=== PATIENT | female | born 1940 | race Caucasian/White ===

== ENCOUNTER 2022-01-11 14:18 | Inpatient (IN) ==
[2022-01-11] MEDS ORDERED: Ipratropium/Albuterol Neb 3 ML IH PRN (15:59)
[2022-01-11] MEDS ORDERED: Sennosides/Docusate Sodium TABLET PO PRN (15:59)
[2022-01-11] MEDS ORDERED: Ondansetron ODT 4 MG TAB.RAPDIS SL PRN (15:59)
[2022-01-11] MEDS ORDERED: Acetaminophen 325 MG TABLET PO PRN (15:59)
[2022-01-11] MEDS ORDERED: Albuterol 2.5 MG/3 ML NEBULIZER IH PRN (16:02)
[2022-01-11] MEDS ORDERED: Nitroglycerin 0.4 MG TAB.SUBL SL PRN (16:02)
[2022-01-11] MEDS ORDERED: hydrOXYzine pamoate 25 MG CAPSULE PO PRN (16:02)
[2022-01-11] MEDS: *HR* LORazepam Oral Conc 2 MG/ML PO PRN ×2 (16:14→21:01)
[2022-01-11] MEDS: Morphine Sulfate Oral CONC 10 MG/0.5 ML ORAL.SYG PO PRN (16:15)
[2022-01-11] MEDS ORDERED: Haloperidol Oral Conc 10 MG/5 ML UDC PO PRN (17:17)
[2022-01-11] MEDS ORDERED: 0.9 % Sodium Chloride 1,000 ML IVC SCH (18:00)
[2022-01-11 18:49] LABS: Hematocrit 34.5 % (35.3-44.9); Hemoglobin 11.7 g/dL (11.5-15.4); Mean Corpuscular HGB Conc 33.9 g/dL (31.6-35.5); Mean Corpuscular Hemoglobin 30.6 pg (28.0-33.3); Mean Corpuscular Volume 90.3 fL (83.0-100.0); Mean Platelet Volume 9.4 fL (9.4-12.4); Red Blood Count 3.82 M/mcL (3.82-4.97); Red Cell Distribution Width 13.1 % (11.5-14.5)
[2022-01-11 19:00] LABS: Platelet Count 86 K/mcL (140-400)
[2022-01-11 19:02] LABS: BUN/Creatinine Ratio 20 (6-26); Blood Urea Nitrogen 14 mg/dL (8-23); Calcium 9.4 mg/dL (8.6-10.3); Carbon Dioxide 30 mEq/L (23-29); Chloride 87 mEq/L (98-107); Glucose 344 mg/dL (70-105); Osmolality,Calculated 282 (280-300); Potassium 4.2 mEq/L (3.5-5.1); Sodium 129 mEq/L (136-145); eGFR For African Americans > 60 (> 60); eGFR For Non-African Americans > 60 (> 60)
[2022-01-11 19:12] LABS: INR 1.4; Prothrombin Time 15.3 Seconds (9.4-12.1)
[2022-01-11] MEDS ORDERED: Warfarin perPT PO PRN (19:35)
[2022-01-11] MEDS: *HR* Metformin 500 MG TABLET PO SCH (19:47)
[2022-01-11] MEDS ORDERED: *HR* Warfarin 5 MG TABLET PO ONE (20:15)
[2022-01-11] MEDS: Primidone 50 MG TABLET PO SCH (21:00)
[2022-01-11] MEDS: Famotidine 20 MG TABLET PO SCH (21:01)
[2022-01-11] MEDS: (Colestipol Hcl [Colestid] 1 GM Tablet) PO SCH (21:05)
[2022-01-11] MEDS: *HR* HYDROcodone/Acet 7.5/325 mg TABLET PO PRN (22:33)
[2022-01-12 05:03] LABS: Bilirubin,Urine Negative (Negative); Blood,Urine Small (Negative); Clarity,Urine Cloudy (Clear); Color,Urine Yellow (Yellow); Glucose,Urine (UA) 100 mg/dL (Normal); Ketones,Urine Negative (Negative); Leukocyte Esterase,Urine Large (Negative); Nitrite,Urine Positive (Negative); PH,Urine 5.5 pH Units (5.0-8.0); Protein,Urine Trace mg/dL (Neg-Trace); Urobilinogen,Urine Normal (Normal)
[2022-01-12] MEDS: *HR* HYDROcodone/Acet 7.5/325 mg TABLET PO PRN ×3 (05:14→17:33)
[2022-01-12 05:19] LABS: Bacteria,Urine Many per hpf (None-Few); RBC,Urine 0-3 per hpf (0-3); Squamous Epithelial Cell,Urine Few per hpf (None-Few); WBC,Urine TNTC per hpf (0-3)
[2022-01-12 08:10] LABS: INR 1.4; Prothrombin Time 15.3 Seconds (9.4-12.1)
[2022-01-12] MEDS ORDERED: Furosemide 40 MG TABLET PO SCH (09:00)
[2022-01-12] MEDS ORDERED: *HR* Warfarin 5 MG TABLET PO SCH ×2 (09:00)
[2022-01-12] MEDS: Gabapentin 100 MG CAPSULE PO SCH (09:32)
[2022-01-12] MEDS: Primidone 50 MG TABLET PO SCH ×2 (09:33→21:53)
[2022-01-12] MEDS: Isosorbide MONOnitrate (24 HR) 30 MG TAB.ER.24H PO SCH (09:33)
[2022-01-12] MEDS: *HR* Digoxin 0.125 MG TABLET PO SCH (09:33)
[2022-01-12] MEDS: Metoprolol XL (24 HR) Succ 50 MG TAB.ER.24H PO SCH (09:33)
[2022-01-12] MEDS: (Colestipol Hcl [Colestid] 1 GM Tablet) PO SCH ×2 (09:34→21:54)
[2022-01-12] MEDS: Cefdinir 300 MG CAPSULE PO SCH ×2 (11:13→21:53)
[2022-01-12] MEDS: *HR* Metformin 500 MG TABLET PO SCH (17:30)
[2022-01-12] MEDS ORDERED: *HR* Warfarin 5 MG TABLET PO ONE (18:00)
[2022-01-12] MEDS: Famotidine 20 MG TABLET PO SCH (21:53)
[2022-01-13] MEDS: *HR* HYDROcodone/Acet 7.5/325 mg TABLET PO PRN ×4 (05:38→22:12)
[2022-01-13 07:49] LABS: Basophils % 0.7 %; Eosinophils # 0.1 K/mcL (0.0-0.6); Eosinophils % 2.3 %; Hematocrit 36.9 % (35.3-44.9); Immature Granulocytes % 0.7 % (0-4); Lymphocytes # 1.3 K/mcL (0.6-4.6); Lymphocytes % 23.3 %; Mean Corpuscular HGB Conc 32.5 g/dL (31.6-35.5); Mean Corpuscular Volume 92.3 fL (83.0-100.0); Monocytes # 0.7 K/mcL (0.0-1.3); Monocytes % 12.8 %; Neutrophils # 3.4 K/mcL (1.6-8.9); Platelet Count 109 K/mcL (140-400); Segmented Neutrophils % 60.2 %; White Blood Count 5.6 K/mcL (4.3-11.1)
[2022-01-13 07:53] LABS: INR 1.6; Prothrombin Time 18.2 Seconds (9.4-12.1)
[2022-01-13 08:07] LABS: BUN/Creatinine Ratio 27 (6-26); Blood Urea Nitrogen 21 mg/dL (8-23); Calcium 9.5 mg/dL (8.6-10.3); Carbon Dioxide 34 mEq/L (23-29); Chloride 92 mEq/L (98-107); Glucose 291 mg/dL (70-105); Osmolality,Calculated 292 (280-300); Potassium 4.7 mEq/L (3.5-5.1); Sodium 134 mEq/L (136-145); eGFR For African Americans > 60 (> 60); eGFR For Non-African Americans > 60 (> 60)
[2022-01-13 08:15] LABS: Large Platelets Present (Not Present); Platelet Estimate Decreased (Normal)
[2022-01-13] MEDS: Isosorbide MONOnitrate (24 HR) 30 MG TAB.ER.24H PO SCH (09:02)
[2022-01-13] MEDS: Primidone 50 MG TABLET PO SCH ×2 (09:02→22:11)
[2022-01-13] MEDS: *HR* Digoxin 0.125 MG TABLET PO SCH (09:02)
[2022-01-13] MEDS: Gabapentin 100 MG CAPSULE PO SCH (09:02)
[2022-01-13] MEDS: Metoprolol XL (24 HR) Succ 50 MG TAB.ER.24H PO SCH (09:02)
[2022-01-13] MEDS: Cefdinir 300 MG CAPSULE PO SCH ×2 (09:03→22:11)
[2022-01-13] MEDS: (Colestipol Hcl [Colestid] 1 GM Tablet) PO SCH ×2 (09:03→22:13)
[2022-01-13] MEDS ORDERED: *HR* Dextrose 50 % in Water (Syg) 50 ML SYRINGE IVP PRN (11:48)
[2022-01-13] MEDS ORDERED: Dextrose Gel 15 GM/37.5 ML TUBE PO PRN ×2 (11:48)
[2022-01-13] MEDS ORDERED: D5% in Water 1,000 ML IVC PRN (11:48)
[2022-01-13] MEDS: Insulin LISPRO 300 UNITS/3 ML VIAL SUBQ SCH ×2 (12:08→17:25)
[2022-01-13] MEDS: Morphine Sulfate Oral CONC 10 MG/0.5 ML ORAL.SYG PO PRN (14:47)
[2022-01-13] MEDS: *HR* Metformin 500 MG TABLET PO SCH (17:24)
[2022-01-13] MEDS ORDERED: *HR* Warfarin 5 MG TABLET PO ONE (18:00)
[2022-01-13] MEDS: Famotidine 20 MG TABLET PO SCH (22:12)
[2022-01-14 05:12] LABS: INR 1.9; Prothrombin Time 20.8 Seconds (9.4-12.1)
[2022-01-14] MEDS: Insulin LISPRO 300 UNITS/3 ML VIAL SUBQ SCH ×3 (09:09→18:03)
[2022-01-14] MEDS: Primidone 50 MG TABLET PO SCH ×2 (09:10→21:57)
[2022-01-14] MEDS: Isosorbide MONOnitrate (24 HR) 30 MG TAB.ER.24H PO SCH (09:10)
[2022-01-14] MEDS: Gabapentin 100 MG CAPSULE PO SCH (09:10)
[2022-01-14] MEDS: *HR* Digoxin 0.125 MG TABLET PO SCH (09:10)
[2022-01-14] MEDS: Metoprolol XL (24 HR) Succ 50 MG TAB.ER.24H PO SCH (09:10)
[2022-01-14] MEDS: Cefdinir 300 MG CAPSULE PO SCH ×2 (09:11→21:57)
[2022-01-14] MEDS: (Colestipol Hcl [Colestid] 1 GM Tablet) PO SCH ×2 (09:11→22:11)
[2022-01-14] MEDS ORDERED: Ergocalciferol (VIT D2) 50,000 UNIT (1.25MG) CAP PO SCH ×2 (16:02→18:00)
[2022-01-14] MEDS ORDERED: *HR* Warfarin 3 MG TABLET PO ONE (18:00)
[2022-01-14] MEDS: *HR* Metformin 500 MG TABLET PO SCH (18:02)
[2022-01-14] MEDS ORDERED: Famotidine 20 MG TABLET PO SCH (21:00)
[2022-01-14] MEDS ORDERED: Insulin LISPRO 300 UNITS/3 ML VIAL SUBQ SCH (21:00)
[2022-01-14] MEDS: *HR* HYDROcodone/Acet 7.5/325 mg TABLET PO PRN (21:56)
[2022-01-15] MEDS: Morphine Sulfate Oral CONC 10 MG/0.5 ML ORAL.SYG PO PRN (01:14)
[2022-01-15 04:38] LABS: INR 2.3
[2022-01-15 06:19] VITALS: PULSE 84; TEMP 98; O2SAT 96
[2022-01-15 06:43] VITALS: BP 146/74; RESP 76
[2022-01-15] MEDS: Insulin LISPRO 300 UNITS/3 ML VIAL SUBQ SCH (08:22)
[2022-01-15] MEDS: Gabapentin 100 MG CAPSULE PO SCH (09:42)
[2022-01-15] MEDS: Isosorbide MONOnitrate (24 HR) 30 MG TAB.ER.24H PO SCH (09:42)
[2022-01-15] MEDS: Metoprolol XL (24 HR) Succ 50 MG TAB.ER.24H PO SCH (09:42)
[2022-01-15] MEDS: Primidone 50 MG TABLET PO SCH (09:43)
[2022-01-15] MEDS: Cefdinir 300 MG CAPSULE PO SCH (09:43)
[2022-01-15] MEDS: *HR* Digoxin 0.125 MG TABLET PO SCH (09:43)
[2022-01-15] MEDS: *HR* LORazepam Oral Conc 2 MG/ML PO PRN (09:47)
[2022-01-15] MEDS: (Colestipol Hcl [Colestid] 1 GM Tablet) PO SCH (09:47)
[2022-01-15] MEDS ORDERED: *HR* Warfarin 2 MG TABLET PO ONE (18:00)
== END 2022-01-15 11:57 | disposition hospice, inpatient (51) | DRG 951 ==
LOC: INPGRE 14:41
PROVIDERS: ADMIT Family Medicine; ATTEND Family Medicine